=== PATIENT | female | born 1980 | race Two or more races ===

== ENCOUNTER 2021-05-03 11:44 | Emergency (ER) | payer MEDICAID ==
[~2021-05-03] VITALS: Ht 175.3 cm; Wt 77.0 kg
--- NOTE | 2021-05-03 13:51 | PHYS DOC ---
Past Medical History Past Medical History: No Pertinent History Past Surgical History: Additional Past Surgical Histo: gastric sleeve Smoking Status: Never Smoker Alcohol Use: None General Adult EDM: Chief Complaint: VAGINAL BLEEDING HPI: HPI: Patient is a 40-year-old female who presents today with vaginal bleeding with a positive test. Patient states bleeding started on being a small amount and since last evening she has changed her pad twice and is concerned with the increased amount of bleeding. Patient states last normal menstrual period was March 02, and has had no care. Review of Systems: Review of Systems: Constitutional: Denies fever or chills. [] Eyes: Denies change in visual acuity. [] HENT: Denies nasal congestion or sore throat. [] Respiratory: Denies cough or shortness of breath. [] Cardiovascular: Denies chest pain or edema. [] GI: Denies abdominal pain, nausea, vomiting, bloody stools or diarrhea. [] : Denies dysuria. [] Musculoskeletal: Denies back pain or joint pain. [] Integument: Denies rash. [] Neurologic: Denies headache, focal weakness or sensory changes. [] Endocrine: Denies polyuria or polydipsia. [] Lymphatic: Denies swollen glands. [] Psychiatric: Denies depression or anxiety. [] Heart Score: C/O Chest Pain: N/A Risk Factors: Risk Factors: DM, Current or recent (<one month) smoker, HTN, HLP, family history of CAD, obesity. Risk Scores: Score 0 - 3: 2.5% MACE over next 6 weeks - Discharge Home Score 4 - 6: 20.3% MACE over next 6 weeks - Admit for Clinical Observation Score 7 - 10: 72.7% MACE over next 6 weeks - Early Invasive Strategies Physical Exam: PE: Constitutional: Well developed, well nourished, no acute distress, non-toxic appearance. [] HENT: Normocephalic, atraumatic, bilateral external ears normal, oropharynx moist, no oral exudates, nose normal. [] Eyes: PERRLA, EOMI, conjunctiva normal, no discharge. [] Neck: Normal range of motion, no tenderness, supple, no stridor. [] Cardiovascular:Heart rate regular rhythm, no murmur [] Lungs & Thorax: Bilateral breath sounds clear to auscultation [] Abdomen: Bowel sounds normal, soft, no tenderness, no masses, no pulsatile masses. [] Skin: Warm, dry, no erythema, no rash. [] Back: No tenderness, no CVA tenderness. [] Extremities: No tenderness, no cyanosis, no clubbing, ROM intact, no edema. [] Neurologic: Alert and oriented X 3, normal motor function, normal sensory f unction, no focal deficits noted. [] Psychologic: Affect normal, judgement normal, mood normal. [] Current Patient Data: Labs: Laboratory Tests Test 05/03/21 12:42 POC Urine HCG, Qualitative Hcg positive (Negative) Vital Signs: Vital Signs Date Time Temp Pulse Resp B/P (MAP) Pulse Ox O2 Delivery O2 Flow Rate FiO2 05/03/21 12:35 97.8 66 16 166/108 (127) 99 Room Air 97.8 EKG: EKG: [] Radiology/Procedures: Radiology/Procedures: Pelvic Exam: External exam is normal and without rash, vaginal bleeding noted, OS open with tissue noted, tissue removed with ring forceps and placed in c ollection cup, bleeding noted from OS, patient tolerated well. REASON: and vaginal bleeding PROCEDURE: PREG 1ST TRIMESTER Obstetrical ultrasound less than 14 weeks. HISTORY: and vaginal bleeding Transvaginal ultrasound was performed. There is fluid in the endometrium. Endometrial gestation is not identified. There is thickening in the endometrium measuring 11 mm. There is thickening of the endocervical canal likely hemorrhage. Left ovary measures 2.6 x 2.3 x 2.1 cm. There is a follicle in the left ovary measuring 1.4 x 1.8 x 2 cm. There is flow in the left ovary with color imaging and Doppler. There is also a cystic structure at the margin of the ovary measuring 2.3 x 2.7 x 1.7 cm. There are a few internal echoes but definite gestation is not identified. Right ovary measures 3.3 x 1.6 x 1.3 cm. There is free fluid in the cul-de-sac and in the right adnexa. IMPRESSION: 1. No intrauterine noted. 2. Thickening of the endocervical canal and endometrium likely hemorrhage. 3. Left ovarian cyst, left paraovarian cyst. 4. Free fluid. 5. Definitive ectopic not identified but not excluded. Electronically signed by: Selvin Eng MD (05/03/2021 2:03 PM) [facility] Course & Med Decision Making: Course & Med Decision Making Pertinent Labs and Imaging studies reviewed. (See chart for details) 1430 reassessed patient, patient states having some cramping sensation in her lower abdomen, she was up to the bathroom and had a small amount of vaginal bleeding no clots no tissue per patient report. Blood pressure currently is 169/105, patient states she had gastric sleeve done in the spring of this year and has lost 70 pounds of took her self off her lisinopril thinking she did not lead needed anymore patient educated that she may need her lisinopril. Patient denies chest pain shortness of breath or headache at this time. Reviewed ultrasound results with Dr. Cazares who feels a quantitative beta-hCG should be drawn at this time. We will contact Dr. Chauhan because patient is okay to follow-up with him on Wednesday or Wednesday for repeat quantitative beta-hCG . Spoke to patient at length regarding return instructions including increased vaginal bleeding, passage of clots and tissue or dizziness. Also advised patient if she starts having chest pain or shortness of breath headache or strokelike symptoms to resist turn due to hypertensive concern. [address] Chauhan on the phone regarding follow-up for patient next week and he is agreeable to that plan. ] Dragon Disclaimer: Dragon Disclaimer: This electronic medical record was generated, in whole or in part, using a voice recognition dictation system. Departure Departure Impression: Primary Impression: Spon w/o complication Disposition: HOME / SELF CARE / HOMELESS Condition: STABLE Referrals: BLANCA NAIK APRN (PCP) MARTHA CHAUHAN MD Patient Instructions: Miscarriage Additional Instructions: Return to the emergency department with increased abdominal pain, increased vaginal bleeding, passage of clots and tissue, and dizziness. Increase by mouth fluid, eating 3 meals daily Recheck blood pressure with primary care's office on Wednesday Follow-up with Dr. Chauhan office on Wednesday for repeat blood draw for your hormone level Tylenol and/or ibuprofen as needed for pain. SAMMIE ALVAREZ APRN May 03, 2021 13:51
[2021-05-03] MEDS ORDERED: ACETAMINOPHEN 500 MG TABLET PO ONE (14:00)
--- NOTE | 2021-05-03 14:05 | RAD ---
Obstetrical ultrasound less than 14 weeks. HISTORY: and vaginal bleeding Transvaginal ultrasound was performed. There is fluid in the endometrium. Endometrial gestation is no t identified. There is thickening in the endometrium measuring 11 mm. There is thickening of the endo cervical canal likely hemorrhage. Left ovary measures 2.6 x 2.3 x 2.1 cm. There is a follicle in the left ovary measuring 1.4 x 1.8 x 2 cm. There is flow in the left ovary with color imaging and Doppler. There is also a cystic structure at the margin of the ovary measuring 2.3 x 2.7 x 1.7 cm. There are a few internal echoes but definit e gestation is not identified. Right ovary measures 3.3 x 1.6 x 1.3 cm. There is free fluid in the cul-de-sac and in the right adnex a. IMPRESSION: 1. No intrauterine noted. 2. Thickening of the endocervical canal and endometrium likely hemorrhage. 3. Left ovarian cyst, left paraovarian cyst. 4. Free fluid. 5. Definitive ectopic not identified but not excluded. Electronically signed by: Selvin Eng MD (05/03/2021 2:03 PM) [facility]
[2021-05-03 15:25] VITALS: BP 185/86
== END 2021-05-03 15:25 | disposition home or self-care (01) ==
LOC: ER 11:44
DX: O03.9 Complete or unspecified spontaneous abortion without complication (principal); O34.81 Maternal care for other abnormalities of pelvic organs, first trimester; N83.202 Unspecified ovarian cyst, left side; Z3A.14 14 weeks gestation of pregnancy
CPT/HCPCS: 36415; 76801; 81025; 84702; 86850; 86900; 86901; 99284-25